=== PATIENT | female | born 1990 | race African-American/Black ===

== ENCOUNTER 2021-03-06 23:55 | Emergency (ER) | payer SELFPAY | END 2021-03-07 00:25 | disposition home or self-care (01) | LOC: CSHERS 23:55 | DX: R20.8 Other disturbances of skin sensation (principal) | CPT/HCPCS: 99283 ==

== ENCOUNTER 2021-05-14 09:49 | Emergency (ER) | payer SELFPAY | END 2021-05-14 10:21 | disposition home or self-care (01) | LOC: CSHERS 09:49 | DX: K04.7 Periapical abscess without sinus (principal) | CPT/HCPCS: 99283 ==

== ENCOUNTER 2021-10-06 00:55 | Emergency (ER) | payer SELFPAY ==
[2021-10-06] MEDS ORDERED: Ketorolac Tromethamine 30 MG/ML VIAL ONE (01:23)
== END 2021-10-06 02:13 | disposition home or self-care (01) ==
LOC: CSHERS 00:55
DX: M25.532 Pain in left wrist (principal); W19.XXXA Unspecified fall, initial encounter
CPT/HCPCS: 29125; 96372; J1885

== ENCOUNTER 2021-12-27 21:58 | Emergency (ER) | payer SELFPAY ==
[2021-12-27] MEDS ORDERED: Ketorolac Tromethamine 30 MG/ML VIAL ONE (22:50)
== END 2021-12-27 23:47 | disposition home or self-care (01) ==
LOC: CSHERS 21:58
DX: S29.011A Strain of muscle and tendon of front wall of thorax, initial encounter (principal); M79.18 Myalgia, other site; X58.XXXA Exposure to other specified factors, initial encounter
CPT/HCPCS: 93005; 96372; J1885

== ENCOUNTER 2022-01-29 07:43 | Emergency (ER) | payer SELFPAY | END 2022-01-29 08:44 | disposition home or self-care (01) | LOC: CSHERS 07:43 | DX: J06.9 Acute upper respiratory infection, unspecified (principal); Z20.822 Contact with and (suspected) exposure to COVID-19 | CPT/HCPCS: 87804; 99283; U0003; U0005 ==

== ENCOUNTER 2022-04-11 07:41 | Emergency (ER) | payer SELFPAY ==
[2022-04-11] MEDS ORDERED: Acetaminophen 500 MG TAB ONE (08:11)
== END 2022-04-11 09:36 | disposition home or self-care (01) ==
LOC: CSHERS 07:41
DX: J03.90 Acute tonsillitis, unspecified (principal); Z20.822 Contact with and (suspected) exposure to COVID-19
CPT/HCPCS: 87081; 87430; 87804; 99283; U0003; U0005

== ENCOUNTER 2022-05-10 12:54 | Emergency (ER) | payer SELFPAY | END 2022-05-10 13:35 | disposition home or self-care (01) | LOC: CSHERS 12:54 | DX: J03.90 Acute tonsillitis, unspecified (principal) | CPT/HCPCS: 87081; 87430; 99283 ==

== ENCOUNTER 2022-08-10 07:38 | Emergency (ER) | payer SELFPAY ==
[2022-08-10] MEDS ORDERED: Ketorolac Tromethamine 30 MG/ML VIAL ONE (08:18)
[2022-08-10] MEDS ORDERED: Dexamethasone 10 MG/ML VIAL ONE (08:18)
[2022-08-10] MEDS ORDERED: guaiFENesin/Codeine Phosphate 100 mg/10 mg 5 ml UD Cup ONE (08:24)
[2022-08-10 09:15] LABS: SARS-CoV-2 NAA Rapid Test Not Detected (NotDetected)
== END 2022-08-10 10:28 | disposition home or self-care (01) ==
LOC: CSHERS 07:38
DX: J02.9 Acute pharyngitis, unspecified (principal); B34.9 Viral infection, unspecified; Z20.822 Contact with and (suspected) exposure to COVID-19
CPT/HCPCS: 71045; 87081; 87430; 96372; J1100; J1885

== ENCOUNTER 2022-09-04 16:42 | Emergency (ER) | payer SELFPAY ==
[~2022-09-04 16:42] MED LIST: Iopamidol 300 61% 100 ML VIAL FS ONE
[2022-09-04 17:07] LABS: #Monocytes 0.2 10x3/uL (0.0-1.1); #Neutrophils 6.5 10x3/uL (1.5-8.4); %Basophils 0.1 % (0.0-2.0); %Eosinophils 0.4 % (0.0-6.0); %Lymphocytes 8.7 % (18.0-47.0); %Monocytes 2.6 % (0.0-10.0); %Neutrophils 87.9 % (40.0-75.0); Hemoglobin 12.7 g/dL (12.0-15.5); Mean Corpuscular HGB CONC 32.1 g/dL (32.0-36.0); Mean Corpuscular Hemoglobin 26.3 pg (27.0-33.0); Platelet Count 185 10x3/uL (150-450); RBC Distribution Width 13.5 % (11.5-14.5); Red Blood Cell (RBC) Count 4.83 10x6/uL (3.90-5.03); White Blood Cell (WBC) Count 7.3 10x3/uL (3.5-10.5)
[2022-09-04] MEDS ORDERED: Ondansetron PF 4 MG/2 ML Vial ONE (17:08)
[2022-09-04 17:21] LABS: BHCG - Serum Negative (NEGATIVE); Pregs Control Background? CLEAR/WHITE (CLR/WHITE); Pregs Control Bar Appear? YES (CONTROL BAR)
[2022-09-04 17:26] LABS: Acetaminophen Less than 10.0 mcg/mL (10.0-30.0); Alcohol Less than 10 mg/dL (Less than 10); Salicylate Less than 8.0 mg/dL (15.0-30.0)
[2022-09-04 17:43] LABS: ALT (SGPT) 11 U/L (8-55); AST (SGOT) 22 U/L (5-34); Albumin 4.4 g/dL (3.5-5.0); Alkaline Phosphatase 52 U/L (40-110); Anion Gap 17 mmol/L (10-20); BUN (Urea Nitrogen) 9 mg/dL (7.0-18.7); Bilirubin, Total 0.5 mg/dL (0.2-1.2); Calc. Creatinine Clearance 0 mL/min (70-130); Calcium 8.9 mg/dL (7.8-10.44); Carbon Dioxide 19 mmol/L (22-29); Chloride 109 mmol/L (98-107); Estimated GFR 97; Globulin 3.8 g/dL (2.4-3.5); Glucose 100 mg/dL (70-105); Lipase 18 U/L (8-78); Potassium 4.4 mmol/L (3.5-5.1); Protein, Total 8.2 g/dL (6.0-8.3); Sodium 141 mmol/L (136-145)
[2022-09-04] MEDS ORDERED: Dicyclomine 20 MG TAB ONE (18:50)
[2022-09-04] MEDS ORDERED: Acetaminophen 500 MG TAB ONE (18:50)
[2022-09-04 19:20] LABS: Bilirubin Neg (Negative); Blood, Urine Negative (Negative); Clarity Clear (Clear); Glucose, Urine (Dipstick) Normal (Negative); Ketone, Urine Negative (Negative); Leukocyte Negative (Negative); Nitrite Negative (Negative); Protein, Urine (Dipstick) Negative (Neg-Trace); Urobilinogen Normal mg/dL (Less than 2)
[2022-09-04 19:30] LABS: Amphetamine Not Detected (NotDetected); Barbiturates Screen Not Detected (NotDetected); Benzodiazepine Screen Not Detected (NotDetected); Cocaine Metabolite Screen Not Detected (NotDetected); Methadone Not Detected (NotDetected); Methamphetamine Not Detected (NotDetected); Opiate Screen Not Detected (NotDetected); Oxycodone Screen Not Detected (NotDetected); Phencyclidine (PCP) Not Detected (NotDetected); THC/Cannabinoid Screen Detected (NotDetected); Tricyclic Screen Not Detected (NotDetected)
== END 2022-09-04 19:28 | disposition home or self-care (01) ==
LOC: CSHERS 16:42
DX: K80.20 Calculus of gallbladder without cholecystitis without obstruction (principal)
CPT/HCPCS: 70450; 74177; 80053; 80306; 80307; 81003; 83690; 84484; 84703; 85025; 93005; 96361; 96374; J2405; Q9967

== ENCOUNTER 2023-05-11 10:56 | Emergency (ER) | payer SELFPAY ==
[2023-05-11 12:51] LABS: SARS-CoV-2 NAA Rapid Test Not Detected (NotDetected)
[2023-05-11 13:52] LABS: SARS-CoV-2 NAA Rapid Test Not Detected (NotDetected)
== END 2023-05-11 13:41 | disposition home or self-care (01) ==
LOC: CSHERS 10:56
DX: J06.9 Acute upper respiratory infection, unspecified (principal)
CPT/HCPCS: 71045; 93005; U0002

== ENCOUNTER 2023-09-08 13:33 | Emergency (ER) | payer SELFPAY ==
[2023-09-08] MEDS ORDERED: Ibuprofen 800 MG TAB ONE (14:01)
== END 2023-09-08 15:11 | disposition home or self-care (01) ==
LOC: CSHERS 13:33
DX: S63.92XA Sprain of unspecified part of left wrist and hand, initial encounter (principal); W19.XXXA Unspecified fall, initial encounter